=== PATIENT | female | born 1980 | race Caucasian/White ===

== ENCOUNTER → 2020-04-28 | Outpatient (CLI) | payer OTHER, SELFPAY ==
[2020-05-02 17:19] LABS: HPV Reflexed? NOT INDICATED
== END | disposition home or self-care (01) ==
LOC: LABSPEC 16:47
PROVIDERS: Visit Provider Obstetrics & Gynecology
DX: Z12.4 Encounter for screening for malignant neoplasm of cervix (principal)
CPT/HCPCS: 88175; G0145

== ENCOUNTER 2020-07-28 10:17 | Observation (INO) | payer OTHER, SELFPAY ==
--- NOTE | 2020-07-22 13:54 | EKG12_ITS ---
Test Reason : PRE OP Blood Pressure : / mmHG Vent. Rate : 073 BPM Atrial Rate : 073 BPM P-R Int : 126 ms QRS Dur : 100 ms QT Int : 376 ms P-R-T Axes : 060 074 060 degrees QTc Int : 414 ms Normal sinus rhythm with sinus arrhythmia Normal ECG Confirmed by WAQAR JARAMILLO, KENDALL ([id number]), editor greeting card LENNY GIRON ([id number]) on 07/23/2020 10:13:03 AM Referred By: Rick Puente Confirmed By:KENDALL ZAVALETA MD
[2020-07-24 14:45] LABS: Hematocrit 41.4 % (37-47); Hemoglobin 13.9 g/dL (12.0-15.0); Mean Corp Hgb Conc 33.6 g/dL (32-36); Mean Corpuscular Hgb 31.4 pg (27.0-32.0); Mean Corpuscular Volume 93.7 fL (81-99); Mean Platelet Vol. 9.1 fl (6.2-12.0); Platelet Count 331 K/mm3 (150-450); RBC Distribution Width CV 12.5 % (11.6-14.6); RBC Distribution Width SD 43.5 fl (35.1-43.9); Red Blood Count 4.42 M/mm3 (4.2-5.4); White Blood Count 12.6 K/mm3 (4.4-11.0)
[2020-07-24 15:06] LABS: Creatinine, Serum 0.78 mg/dL (0.55-1.02); EST Glomerular Filtration Rate 86 mL/min (>60); Est Glom Filt Rate - Afr Amer 105 mL/min (>60)
--- NOTE | 2020-07-26 12:20 | PCM.HP.BLA ---
History and Physical Date of Admission: 07/28/20 Surgical History and Physical Alysa Sahu, a 40 year old female 3 0 0 0 2, presents for RAVH/BS and Marsupialization/removal of vulvovaginal cyst on July 28, 2020 at 8:00. -- Menorrhagia S/P Endometrial Ablation; Chronic Vulvar Cyst -- Vaginal bleeding and discharge which began several years ago. It occurs on and off throughout the years. It is located in the vagina. Severity is moderate and worsening; Associated signs and symptoms are vaginal discharge.; Associated signs and symptoms are foul odor. Also vulvovaginal cyst which is bothersome. MEDICATIONS HISTORY: Patient is also takin. No Meds ALLERGIES: Erythromycin Base, Intolerance-unknown Infections - Chicken pox Illnesses - no serious past illnesses Accidents - None Hospitalizations - see surgery Review of Systems: GENERAL - Denies fever, or chills SKIN - Denies skin changes EYES - Denies visual changes EARS - Denies difficulty hearing NOSE - Denies nasal congestion or bleeding MOUTH - Denies sore throat or difficulty swallowing NECK - Denies pain or swelling RESPIRATORY - Denies shortness of breath or wheezing CARDIOVASCULAR - Denies palpitations or chest pain GASTROINTESTINAL - Denies nausea, vomiting, diarrhea, constipation GENITOURINARY - Denies dysuria, frequency of urination, incontinence of urine MUSCULOSKELETAL - Denies joint or muscle pain NEUROLOGICAL - Denies localized numbness or weakness PSYCHIATRIC - Denies depression or anxiety ENDOCRINE - Denies heat or cold intolerance, weight loss or gain HEMATO-IMMUNOLOGIC - Denies excesive bleeding with cuts SOCIAL HISTORY: Alcohol Use - RARELY Smoking - 1 PPD (ATQ) Diet - no special diet Lifestyle - moderate stress lifestyle and Exercise - minimal Seat Belt Use - always Employer - [employer] Job Description - [place] Illicit Drug Use - None Sexual Activity - Hours Worked - 40 Spouse-Sig Other Name - Neftali Spouse-Sig Other Occupation - [employer] Children Name(s) - 2 living children, oldest son heart defect at 18 Control - Tubal FAMILY HISTORY: MENSTRUAL HISTORY: LMP Known?- Approximate-Month KnownAmount/Duration - 6-7 DAYS, Regularity - Regular, Frequency - monthly days, LMP - 07/05/20, Age Onset Menarche - 12 PAST PREGNANCIES: Total Pregnancies - 3; Full Term Pregnancies - 3; Premature - 0; Abortions, Induced - 0; Abortions, Spontaneous - 0; Ectopics - 0; Multiple Births - 0; Living Children - 2 SURGICAL HISTORY: 1. 02/12/2009 2. 07/19/2013 and Tubal 3. 03/19/2016 Ablation 4. 2004 [place] [facility] PHYSICAL EXAM BP- 102/74 Sitting, Right arm, regular cuff Temp- 98.6 Taken Orally Weight- 158.06967 lbs Height- 64.00 inch BMI:27.28 CONSTITUTIONAL - NAD, well nourished, and well developed SKIN - No rash, lesions, or ulcers HEENT - Normocephalic, PERRLA, EOMI NECK - No nodes, no nuchal rigidity and thyroid normal size and texture LYMPH NODES - Palpation of lymph nodes in neck and groins within normal limits LUNGS - CTA x2 without wheezes, crackles or rales CARDIAC - Regular rate and rhythm without rubs, murmurs, or gallops BREAST - No dominant masses, no tenderness, no axillary adenopathy, no nipple discharge, no skin changes ABDOMEN - Without hepatosplenomegaly, distention, masses, rebound, or guarding; normal bowel sounds; no hernias EXTREMITIES - No edema or calf tenderness NEUROLOGICAL - Cranial nerves II-XII grossly intact PSYCHIATRIC - A and O to time, place, person, mood and affect ASSESSMENT/PLAN: Premenopausal Menorrhagia; Vulvovaginal Cyst S/P HTA ablation 4 years ago. Discussed options for treatment and pt unable to take OCPs as she is a smoker. Declines progesterone withdrawal cycles. Wants to proceed with RAVH/BS and marsupialization/excision of vulvovaginal cyst. Discussed RBAs including possibility of laparotomy and all questions answered.
[2020-07-28] VITALS (10 sets, daily range): BP systolic 98–119; BP diastolic 49–67; PULSE 55–86; RESP 14–16; TEMP 36.6–36.9; O2SAT 93–99; BMI 28.3
[2020-07-28] MEDS: Lactated Ringers 1,000 ML 100 ML IV (06:36)
[2020-07-28] MEDS: Cefotetan 2 GM in 0.9% NS 100 ML IV (07:54)
--- NOTE | 2020-07-28 08:00 | HYST_PTH ---
PATIENT: TANIA HARP LOC: [facility]3 U#:[id number] AGE/SX: 40/F ROOM: MS317 RE07/28/[address]: Dr. Rick Puente MD : 1980 BED: 1 DIS: 07/29/2020 SPEC #: [id number] RECD: 07/28/20 10:56 STATUS: PRANAY RESally #: [id number] RUSSELL: 07/28/20 08:[address]: Rick Puente DEPT: SURGICAL PATHOLOGY RECD BY: Delonte Medina ENTERED: 07/28/20 11:22 SP TYPE: HYSTERECT OTHR DR: Dr. Prieto Gage MD Tissues: A - Uterus, NOS B - CYST Procedures: Surgery Specimen Level IV Surgery Specimen Level V HEADER OPERATION: Lap robotic hysterectomy, bilateral salpingectomy, removal of vaginal wall PRE-OP DIAGNOSIS: Menorrhagia status post endometrial ablation, chronic vulva cyst TISSUE SUBMITTED: A - Uterus, cervix and bilateral fallopian tubes, B - Vaginal wall cyst MICROSCOPIC DIAGNOSIS A. Uterus, hysterectomy: Cervix - nabothian cysts and mild chronic inflammation. Endometrium - denuded with focal secretory change. Myometrium - leiomyoma. Right fallopian tube - no pathologic change. Left fallopian tube - benign paratubal cyst. B. Vaginal wall cyst, excision: Benign squamous cyst with focal rupture and associated reactive change. See comment. AM:weston 07/29/20 COMMENT B. The findings are consistent with Bartholin cyst. Clinical correlation is suggested. MICROSCOPIC DESCRIPTION Slides are reviewed. GROSS DESCRIPTION A - Received in fixative is one container labeled with the patient's name and designated uterus. The specimen consists of a uterus with attached cervix and attached right and left fallopian tubes. Both fallopian tubes contain Filshie clips that are intact. The uterus with cervix measures 10.5 x 5.5 x 5 cm and weighs 120 gm. The ectocervix is unremarkable. The cervical os is ovoid in contour. The endocervical canal measures 3.6 cm in length and is grossly unremarkable. The triangular endometrial cavity measures 4.5 x 2.8 cm. The endometrial surface is reddish-lopez in color and free of mass lesions. The myometrium measures 2.4 cm in greatest thickness and contains a single rubbery nodule measuring 1.3 cm and resembling a leiomyoma. The right and left fallopian tubes are similar in appearance with average lengths of 6 cm and average diameters of 0.6 cm. The fimbriated ends have a normal villous appearance. The soft tissue adjacent to the left fallopian tube contains a smooth, glistening cyst measuring 0.6 cm in greatest dimension. Shellfish Harvester sections are submitted as follows: 1 - anterior cervix, 2 - posterior cervix, 3 & 4 - anterior uterine wall, 5 & 6 - posterior uterine wall, 7 - myometrial mass, bisected, 8 - right fallopian tube, 9 - left fallopian tube and paratubal cyst. B - Received in fixative is one container labeled with the patient's name and designated vaginal wall cyst. The specimen consists of a glistening, ovoid cystic structure measuring 2 cm in diameter. The external surface is smooth and glistening. The external surface is inked and the specimen serially sectioned to reveal yellow pasty material. The inner cyst wall lining is smooth and glistening and the cyst wall averages 0.1 cm in thickness. The specimen is sectioned and totally submitted in two cassettes. / AM:weston 07/28/20 TC:5 CPT: 89173, 28867
[2020-07-28] MEDS: Ropivacaine 0.5% 30 ML Vial (08:19)
--- NOTE | 2020-07-28 10:24 | PCM.OPRPT ---
Report of Operation Date of Procedure: 07/28/20 Pre-Operative Diagnosis: Menorrhagia S/P Endometrial Ablation; Chronic Vulvar Cyst Post-Operative Diagnosis: Menorrhagia S/P Endometrial Ablation; Chronic Vulvar Cyst Surgery/Procedure Performed:: Robotic Assisted Vaginal Hysterectomy, Bilateral Salpingectomy, Excision of Vaginal Cyst Description of Surgical Findings:: 10 cm uterus with normal-appearing fallopian tubes and ovaries. Evidence of prior tubal ligation with Filshie clips and sections, 2 cm posterior vaginal introitus cyst removed intact. brassiere cup mold cutter: Bonilla Mckeon brassiere cup mold cutter: Neftali Segovia Type of Anesthesia:: General - Endotracheal Anesthesiologist: Jus Cornell Specimen's removed: Uterus, bilateral fallopian tubes, vaginal wall cyst Drains: Montes to straight drain Estimated Blood Loss (mL): Minimal Fluids Replaced: Crystalloid Description of Procedure: Surgeon: Rick Puente MD, FACOG Indication: This is a 40 year old patient who has been having problems with menorrhagia after having an endometrial ablation performed. She also has a bothersome posterior vaginal and vulvar cyst. Conservative measures have not been helpful. The patient has been counseled regarding the risks, benefits and alternatives of this procedure including the possibility of bleeding, infection, and injury to surrounding structures such as bowel bladder and all questions were answered. She understands that if BSO is needed that she will need to be on HRT for an indefinite period of time. Procedure: Pt taken to the operating room where, after induction of general anesthesia, the patient was prepped and draped in the usual sterile fashion and placed on a non-slip Huggy-u-vac device. Trendelenburg test was satisfactory. Bladder was drained of urine with a Montes catheter which was left in place. The posterior vaginal wall cyst was examined and excised across the vaginal mucosa. This cyst was shelled out intact and the deep subcutaneous tissue was closed with running 3-0 Vicryl suture. Vaginal mucosa was then closed with running subcuticular and then interrupted [id number] 2-0 chromic suture. Hemostasis was noted. Anterior cervix grasped and cervix was dilated to about 3-4 mm. Uterus sounded to 9 cms. 0-Vicryl suture was placed at the 3:00 and 9:00 position of the cervix. A large Advincula Hand Twister Uterine Manipulator was then placed in the uterus and attention was turned to the laparoscopic portion of the procedure. Ropivocaine 0.5% was injected approximately 2-3 cm superior to the umbilicus and an 8 mm robotic camera port was introduced directly with intraperitoneal placement confirmed with CO2 insufflation. 8 mm robotic side ports were introduced under direct visualization approximately 11 cm lateral and 2 cm inferior to the umbilical port. A 5 mm left upper quadrant port was introduced and airseal insufflation with CO2 was started. The above findings were noted. Robot was docked without difficulty and attention turned to the robotic portion of the procedure. Approximately 30 cc of Ropivicaine was used. Bilateral mesosalpinx were ligated with 35 thompson bipolar coagulation to the level of the round ligament. The posterior aspect of the cervix was identified and then opened for about 1 cm using 25 watt monopolar cautery identifying the uterine manipulating device which had been placed vaginally. Bladder flap was opened and divided to the level of the round ligaments using monopolar cautery. Progressive bites were then ligated on each side of the cervix with 35 thompson bipolar cautery to the uterine arteries. The anterior vaginal mucosa was entered and cervix circumscribed with monopolar cautery. Uterus and attached tubes were removed through the vagina. Vaginal cuff was closed first with 0-Vicryl Latrice stitches placed at each angle followed by closure of the mid-cuff with 0-Monocryl V-lock suture in two layers. Pelvis was copiously irrigated with saline and the right and left ureters were noted to peristalse. Robot was undocked and trocars were removed with as much gas as possible. Incisions were closed with 4-0 Monocryl subcuticular sutures and incisions covered with steri-strips. The patient tolerated the procedure well and was taken to the recovery room in satisfactory condition. Sponge, instruments and needle counts were all correct. There were no apparent complications of the surgery. Cefotan 2 gms IV was given prior to the procedure. Estimated Blood Loss: Minimal Specimen to Pathology: Uterus, bilateral fallopian tubes, vaginal wall cyst Grafts/Implants Used: None - Complications None - Admit VTE Documentation VTE Present on Admission: Yes VTE Mechan Device Prophylaxis: SCD's VTE Pharm Prophylaxis ordered?: Yes
--- NOTE | 2020-07-28 10:32 | DCINST_ITS ---
Discharge Diet: No Restrictions Discharge Activity: Return to Normal Activity, May Not Drive - while taking narcotic pain medications., May Shower May resume sexual activity in: 6-8 weeks Call your doctor if your incision/area has: Continuous Slow Oozing, Sudden Increased Bleeding, Increased Pain/ Swelling, Increased Redness, Foul Smelling Discharge Call your doctor if you observe: Fever of 101 or Higher, Inability to urinate, Inability to have a bowel movement, Using more than one pad per hour Allergies/Adverse Reactions: Allergies erythromycin base Allergy (Verified 07/28/20 06:24) PT UNSURE OF REACTION reaction as child Medications to take at Discharge Docusate Sodium [Colace] 100 mg PO BID PRN PRN #60 cap 07/28/20 Oxycodone [Oxyir] 5 mg PO Q6H PRN PRN 7 Days #14 tablet 07/28/20 The following prescriptions were given: Docusate Sodium [Colace] 100 mg PO BID PRN PRN #60 cap PRN Reason: Constipation Transmission Status: Pending to [facility] Oxycodone [Oxyir] 5 mg PO Q6H PRN PRN 7 Days #14 tablet PRN Reason: Pain Score 6-10 Transmission Status: Sent to [facility] Primary Care Physician: Prieto Gage MD [Primary Care Provider] - Test Results: Test results from this visit will be discussed in further detail at your follow- up appointment, if applicable. Please Follow Up With: Rick Puente MD When: 2 to 3 weeks
[2020-07-28] MEDS: Dextrose 5%-Lactated Ringers 1,000 ML 150 ML IV ×2 (12:27→18:24)
[2020-07-28] MEDS: Ketorolac 30 MG/ML Syringe IV ×2 (16:09→20:58)
[2020-07-28] MEDS: Enoxaparin 30 MG/0.3 ML Syringe SC (18:24)
[2020-07-28] MEDS: oxyCODONE 5 MG Tablet PO (19:30)
[2020-07-28] MEDS: HYDROmorphone 0.5 MG/0.5 ML SYRINGE IV (22:00)
[2020-07-29 02:07] VITALS: BP 103/53; PULSE 61; RESP 16; TEMP 36.6; O2SAT 94
[2020-07-29] MEDS: Ketorolac 30 MG/ML Syringe IV (05:36)
[2020-07-29] MEDS: HYDROmorphone 0.5 MG/0.5 ML SYRINGE IV (05:43)
[2020-07-29 06:33] LABS: Hematocrit 36.6 % (37-47); Hemoglobin 11.6 g/dL (12.0-15.0); Mean Corp Hgb Conc 31.7 g/dL (32-36); Mean Corpuscular Hgb 31.1 pg (27.0-32.0); Mean Corpuscular Volume 98.1 fL (81-99); Mean Platelet Vol. 9.1 fl (6.2-12.0); Platelet Count 257 K/mm3 (150-450); RBC Distribution Width CV 12.8 % (11.6-14.6); RBC Distribution Width SD 45.6 fl (35.1-43.9); Red Blood Count 3.73 M/mm3 (4.2-5.4); White Blood Count 13.3 K/mm3 (4.4-11.0)
[2020-07-29 06:49] LABS: Scan Indicated on CBC? Y/N YES- FLAGS NOTED
--- NOTE | 2020-07-29 06:52 | PCM.PN.OB ---
Subjective: Pt without complaints. Tolerating diet. Denies flatus. Able to void on own. Pain well controlled. Objective: Wound CDI. Good UOP. - Physical Exam Vitals/I&O's: Vital Signs Temp Pulse Resp BP Pulse Ox 97.9 F 61 16 103/53 L 94 07/29/20 02:07 07/29/20 02:07 07/29/20 02:07 07/29/20 02:07 07/29/20 02:07 Oxygen Delivery Method Room Air Weight: 165 lb 5.547 oz Body Mass Index (BMI) 28.3 Intake and Output for Last 24 Hours 07/27/20 07/28/20 07/29/20 23:59 23:59 23:59 Intake Total 1827.5 / 2327.5 1950 / 1950 Output Total 1490 / 1740 600 / 600 Balance 337.5 / 587.5 1350 / 1350 Laboratory Results 07/29/20 06:18: WBC 13.3 H, RBC 3.73 L, Hgb 11.6 L, Hct 36.6 L, MCV 98.1, MCH 31.1, MCHC 31.7 L D, RDW Std Deviation 45.6 H, RDW Coeff of Vince 12.8, Plt Count 257, MPV 9.1 07/29/20 06:18: Creatinine Pending, Est GFR (MDRD) Af Amer Pending, Est GFR (MDRD) Non-Af Pending Current Medications Acetaminophen (Tylenol) 1,000 mg PO Q8H PRN PRN PRN Reason: Pain Score 1-10/10 or Fever Docusate Sodium (Colace) 100 mg PO BID PRN PRN PRN Reason: CONSTIPATION Hydromorphone HCl (Dilaudid Inj) 0.5 mg IV Q3H PRN PRN PRN Reason: Pain Score 4-10 Last Admin: 07/29/20 05:43 Dose: 0.5 mg Documented by: Dextrose/Lactated Ringer's () 1,000 mls @ 150 mls/hr IV .Q6H40M [facility] Last Infusion: 07/29/20 01:47 Dose: Infused Documented by: Influenza Virus Vaccine Quadrival (Flucelvax /Fluzone ) 0.5 ml IM .ONCE ONE Stop: 07/29/20 10:01 Ketorolac Tromethamine (Toradol (Bkc)) 30 mg IV Q6H [facility] Stop: 08/02/20 16:16 Last Admin: 07/29/20 05:36 Dose: 30 mg Documented by: Ondansetron HCl (Zofran) 4 mg IV Q4H PRN PRN PRN Reason: NAUSEA Oxycodone HCl (Oxyir) 5 mg PO Q4H PRN PRN PRN Reason: Pain Score 4-10 Last Admin: 07/28/20 19:30 Dose: 5 mg Documented by: Simethicone (Mylicon) 80 mg PO [facility] Last Admin: 07/28/20 21:00 Dose: 80 mg Documented by: Sodium Chloride () 10 - 40 ml IV UD PRN PRN Reason: SALINE FLUSH Medical Necessity - Tobacco Use Smoking Status: Current every day smoker Tobacco Use: Cigarettes Assessment/Plan Doing well. Release to home with routine instructions.
[2020-07-29 06:57] LABS: Creatinine, Serum 0.66 mg/dL (0.55-1.02); EST Glomerular Filtration Rate 105 mL/min (>60); Est Glom Filt Rate - Afr Amer 127 mL/min (>60); Estimated Creatinine Clearance 97.84 ml/min
[2020-07-29 07:17] VITALS: O2SAT 93
[2020-07-29 08:00] VITALS: BP 118/62; PULSE 64; RESP 16; TEMP 36.7; O2SAT 97
== END 2020-07-29 08:58 | disposition home or self-care (01) ==
LOC: SDC 10:35 → MS3 10:35
PROVIDERS: Anesthesiology; Admitting Provider Obstetrics & Gynecology; PCP Family Medicine; Referring Provider Obstetrics & Gynecology; Visit Provider Obstetrics & Gynecology
PROC: 0UT90ZZ Resection of Uterus, Open Approach (ICD-10-PCS; CPT 58552; principal; 2020-07-28 07:40)
DX: N92.4 Excessive bleeding in the premenopausal period (principal); N90.7 Vulvar cyst; N88.8 Other specified noninflammatory disorders of cervix uteri; D25.1 Intramural leiomyoma of uterus; N83.8 Other noninflammatory disorders of ovary, fallopian tube and broad ligament; Z23 Encounter for immunization; Z11.59 Encounter for screening for other viral diseases; F17.210 Nicotine dependence, cigarettes, uncomplicated
CPT/HCPCS: 00940; 58552; S2900; 36415; 82565; 85027; 85610; 85730; 86850; 86900; 86901; 87635; 88304; 88305; 88307; 93005; 96361; 96365; 96372; 96375; 96376; 99218; 99251; 99406; C9803; J7120; 90686; G0378; G0379; G0463; J2405; U0003